=== PATIENT | female | born 1975 | race Two or more races ===

== ENCOUNTER 2017-04-03 16:30 | Emergency (ER) | payer SELFPAY ==
[2017-04-03] MEDS ORDERED: Ondansetron 4 MG/2 ML SDV IVPUSH ONE (17:29)
[2017-04-03] MEDS ORDERED: Sodium Chloride 0.9% 1,000 ML IV ONE (17:30)
[2017-04-03] MEDS ORDERED: HYDROmorphone 0.5 MG/0.5 ML Syringe IVPUSH ONE ×2 (17:30→19:00)
--- NOTE | 2017-04-03 17:35 | EDM.PDOC ---
ED HPI GENERAL MEDICAL PROBLEM - General Chief Complaint: Abdominal Pain Stated Complaint: SIDE PAIN Time Seen by Provider: 04/03/17 17:20 Source of Information: Reports: Patient History Limitations: Reports: No Limitations - History of Present Illness INITIAL COMMENTS - FREE TEXT/NARRATIVE: Patient is a 41-year-old female who presents to the ED complaining of right lower quadrant abdominal pain that started last night at approximately 6:00. She 's had no appetite. Has had intermittent nausea but with no emesis. Pain has been constant with waxing waning in intensity. Described as a sharp discomfort that is not radiating anywhere. There's been no fever chills. No diarrhea. No pain with urination. No prior history of similar symptoms. She denies being she had a tubal ligation. Denies any abnormal vaginal discharge. Pain is currently a 10 out of 10. history 3, para 2, miscarriage 1 , 0. Patient's past medical history includes a heart murmur, hypothyroidism Currently taking levothyroxine. Surgical history tubal ligation and cholecystectomy. Patient does not smoke, consume alcohol, or recreational drugs. She has no primary care provider. Right Lower Abdominal Pain Score (Numeric/FACES): 10 - Related Data Allergies Allergy/AdvReac Type Severity Reaction Status Date / Time No Known Allergies Allergy Verified 04/03/17 16:41 Home Meds: Home Meds [place] Thyroid. 180 mg PO DAILY 04/03/17 [History] Levothyroxine 25 mcg PO ACBREAKFAST 04/03/17 [History] Past Medical History Cardiovascular History: Reports: Heart Murmur Endocrine/Metabolic History: Reports: Hypothyroidism - Past Surgical History GI Surgical History: Reports: Cholecystectomy ED ROS GENERAL - Review of Systems Review Of Systems: ROS reveals no pertinent complaints other than HPI. Constitutional: Reports: Decreased Appetite. Denies: Fever, Chills Respiratory: Reports: No Symptoms Cardiovascular: Reports: No Symptoms GI/Abdominal: Reports: Abdominal Pain, Decreased Appetite, Nausea. Denies: Constipation, Diarrhea, Difficulty Swallowing, Distension, Flatus, Hematemesis, Vomiting : Denies: Dysuria, Frequency, Hematuria, Urgency ED EXAM, GI/ABD - Physical Exam Exam: See Below Exam Limited By: Language Barrier ( Zack is present helping with interpreting.) General Appearance: Alert, WD/WN, Mild Distress Ears: Hearing Grossly Normal Throat/Mouth: Normal Inspection, Normal Oropharynx Neck: Normal Inspection, Supple Respiratory/Chest: No Respiratory Distress, Lungs Clear, Normal Breath Sounds, Chest Non-Tender Cardiovascular: Normal Peripheral Pulses, Regular Rate, Rhythm GI/Abdominal Exam: Normal Bowel Sounds, Soft, No Organomegaly, No Distention, Rebound (Right lower quadrant), Tender (Right lower quadrant. Positive McBurney point.) (Female) Exam: Normal External Exam, Normal Bimanual Exam, Vaginal Discharge (Skin thick creamy white discharge. Per patient this is normal for her.). No: Adnexal Mass, Adnexal Tenderness, Cervical Dilatation, Cervical Discharge, Cervical Lesions, Cervix Motion Tenderness, Uterine Tenderness, Vaginal Bleeding , Vaginal Tears Back Exam: Normal Inspection. No: CVA Tenderness (L), CVA Tenderness (R) Neurological: Alert, Oriented, CN II-XII Intact, Normal Cognition, No Motor/ Sensory Deficits Psychiatric: Normal Affect, Normal Mood Skin Exam: Warm, Dry, Intact, Normal Color Course - Vital Signs Last Recorded V/S: Last Vital Signs Temp 99.3 F 04/03/17 16:43 Pulse 74 04/03/17 16:43 Resp 17 04/03/17 16:43 BP 161/83 H 04/03/17 16:43 Pulse Ox 98 04/03/17 16:43 - Orders/Labs/Meds Orders: Active Orders 24 hr Category Date Time Status Peripheral IV Care [RC] . DIRECTED Care 04/03/17 17:29 Active Peripheral IV Insertion Adult [OM.PC] Stat Oth 04/03/17 17:28 Ordered Labs: Laboratory Tests 04/03/17 04/03/17 04/03/17 Range/Units 17:35 17:35 18:25 WBC 8.08 (3.98-10.04) K/mm3 RBC 4.58 (3.98-5.22) M/mm3 Hgb 10.2 L (11.2-15.7) gm/L Hct 33.8 L (34.1-44.9) % MCV 73.8 L (79.4-94.8) fl MCH 22.3 L (25.6-32.2) pg MCHC 30.2 L (32.2-35.5) g/dl RDW Std Deviation 42.8 (36.4-46.3) fL Plt Count 390 H (182-369) K/mm3 MPV 10.0 (9.4-12.3) fl Neut % (Auto) 60.4 (34.0-71.1) % Lymph % (Auto) 29.5 (19.3-51.7) % [place] % (Auto) 7.4 (4.7-12.5) % Eos % (Auto) 2.5 (0.7-5.8) Baso % (Auto) 0.1 (0.1-1.2) % Neut # (Auto) 4.88 (1.56-6.13) K/mm3 Lymph # (Auto) 2.38 (1.18-3.74) K/mm3 [place] # (Auto) 0.60 H (0.24-0.36) K/mm3 Eos # (Auto) 0.20 (0.04-0.36) K/mm3 Baso # (Auto) 0.01 (0.01-0.08) K/mm3 Manual Slide Review Abnormal smear Sodium (136-145) mEq/L Potassium (3.5-5.1) mEq/L Chloride (98-107) mEq/L Carbon Dioxide (21-32) mEq/L Anion Gap (5-15) BUN (7-18) mg/dL Creatinine (0.55-1.02) mg/dL Est Cr Clr Drug Dosing mL/min Estimated GFR (MDRD) (>60) mL/min BUN/Creatinine Ratio (14-18) Glucose (74-106) mg/dL Calcium (8.5-10.1) mg/dL Total Bilirubin (0.2-1.0) mg/dL AST (15-37) U/L ALT (14-59) U/L Alkaline Phosphatase (46-116) U/L C-Reactive Protein (<1.0) mg/dL Total Protein (6.4-8.2) g/dl Albumin (3.4-5.0) g/dl Globulin gm/dL Albumin/Globulin Ratio (1-2) Lipase (73-393) U/L Urine Color Yellow (Yellow) Urine Appearance Clear (Clear) Urine pH 7.5 (5.0-8.0) Ur Specific [place] 1.015 (1.005-1.030) Urine Protein Negative (Negative) Urine Glucose (UA) Negative (Negative) Urine Ketones Negative (Negative) Urine Occult Blood Negative (Negative) Urine Nitrite Negative (Negative) Urine Bilirubin Negative (Negative) Urine Urobilinogen 0.2 (0.2-1.0) Ur Leukocyte Esterase Negative (Negative) Urine RBC 0-5 (0-5) /hpf Urine WBC 0-5 (0-5) /hpf Ur Epithelial Cells 5-10 H (0-5) /hpf Urine Bacteria Few (FEW) /hpf Urine Mucus Not seen (FEW) /hpf Urine HCG, Qual Negative (NEGATIVE) 04/03/17 Range/Units 18:25 WBC (3.98-10.04) K/mm3 RBC (3.98-5.22) M/mm3 Hgb (11.2-15.7) gm/L Hct (34.1-44.9) % MCV (79.4-94.8) fl MCH (25.6-32.2) pg MCHC (32.2-35.5) g/dl RDW Std Deviation (36.4-46.3) fL Plt Count (182-369) K/mm3 MPV (9.4-12.3) fl Neut % (Auto) (34.0-71.1) % Lymph % (Auto) (19.3-51.7) % [place] % (Auto) (4.7-12.5) % Eos % (Auto) (0.7-5.8) Baso % (Auto) (0.1-1.2) % Neut # (Auto) (1.56-6.13) K/mm3 Lymph # (Auto) (1.18-3.74) K/mm3 [place] # (Auto) (0.24-0.36) K/mm3 Eos # (Auto) (0.04-0.36) K/mm3 Baso # (Auto) (0.01-0.08) K/mm3 Manual Slide Review Sodium 140 (136-145) mEq/L Potassium 3.7 (3.5-5.1) mEq/L Chloride 103 (98-107) mEq/L Carbon Dioxide 27 (21-32) mEq/L Anion Gap 13.7 (5-15) BUN 8 (7-18) mg/dL Creatinine 0.6 (0.55-1.02) mg/dL Est Cr Clr Drug Dosing 100.01 mL/min Estimated GFR (MDRD) > 60 (>60) mL/min BUN/Creatinine Ratio 13.3 L (14-18) Glucose 99 (74-106) mg/dL Calcium 9.0 (8.5-10.1) mg/dL Total Bilirubin 0.2 (0.2-1.0) mg/dL AST 18 (15-37) U/L ALT 22 (14-59) U/L Alkaline Phosphatase 130 H (46-116) U/L C-Reactive Protein 3.4 H* (<1.0) mg/dL Total Protein 7.9 (6.4-8.2) g/dl Albumin 3.6 (3.4-5.0) g/dl Globulin 4.3 gm/dL Albumin/Globulin Ratio 0.8 L (1-2) Lipase 74 (73-393) U/L Urine Color (Yellow) Urine Appearance (Clear) Urine pH (5.0-8.0) Ur Specific [place] (1.005-1.030) Urine Protein (Negative) Urine Glucose (UA) (Negative) Urine Ketones (Negative) Urine Occult Blood (Negative) Urine Nitrite (Negative) Urine Bilirubin (Negative) Urine Urobilinogen (0.2-1.0) Ur Leukocyte Esterase (Negative) Urine RBC (0-5) /hpf Urine WBC (0-5) /hpf Ur Epithelial Cells (0-5) /hpf Urine Bacteria (FEW) /hpf Urine Mucus (FEW) /hpf Urine HCG, Qual (NEGATIVE) Meds: Medications Discontinued Medications Generic Name Dose Route Start Last Admin Trade Name Nathanq PRN Reason Stop Dose Admin Diatrizoate Meglum/Diatrizoate Sod 90 ml 04/03/17 19:02 04/03/17 19:15 Gastrografin 37% PO 04/03/17 19:03 90 ml ONETIME ONE Administration Hydromorphone HCl 0.5 mg 04/03/17 17:30 04/03/17 17:55 Dilaudid IVPUSH 04/03/17 17:31 0.5 mg ONETIME ONE Administration Hydromorphone HCl 0.5 mg 04/03/17 19:00 Dilaudid IVPUSH 04/03/17 19:01 ONETIME ONE Sodium Chloride 1,000 mls @ 250 mls/hr 04/03/17 17:30 04/03/17 17:51 Normal Saline IV 04/03/17 21:29 250 mls/hr ONETIME ONE Administration Iopamidol 125 ml 04/03/17 19:02 04/03/17 19:15 Isovue-300 (61%) IVPUSH 04/03/17 19:03 125 ml ONETIME ONE Administration Ondansetron HCl 4 mg 04/03/17 17:29 04/03/17 17:53 Zofran IVPUSH 04/03/17 17:30 4 mg ONETIME ONE Administration Sodium Chloride 10 ml 04/03/17 17:29 04/03/17 19:15 Saline Flush FLUSH 10 ml ASDIRECTED PRN Administration Keep Vein Open - Re-Assessments/Exams Free Text/Narrative Re-Assessment/Exam: IV established with Dilaudid 0.5 mg IVP, and Zofran 4 mg IVP, and IV fluids. Initial labs and studies include CBC, chem 14, hCG, lipase, UA, CRP, CT of the abdomen and pelvis with IV and oral contrast to rule out appendicitis. Labs reviewed: White blood cell count 8.08, hemoglobin 10.2, MCV 73.8, platelet count 390, sodium 140, potassium 3.7, AG 13.7, creatinine 0.6, CRP 3.4, alk phosphatase 1:30, lipase 74, and UA negative for any concerning findings. CT the abdomen and pelvis impression: Incidental findings as noted above. Nothing acute is appreciated on CT study of the abdomen and pelvis. Reassessment, patient still expressing severe right adnexal/right lower quadrant abdominal pain. Unclear etiology of pain at this point. Will order non- OB transvaginal ultrasound to evaluate for ovarian torsion. She does have a history of tubal ligation. 04/03/17 22:31 ultrasound pelvis/transvaginal impression: Limited study with questional indication of the right ovary. Left ovary is not identified.. Pelvic free fluid present. Patient remains have pain to the right adnexal/lower abdomen. Unclear etiology at this time. Suggested obtaining a vaginal exam to further delineate cause of pain. Patient has deferred this and will follow up with [facility] [employer] [facility] specialist this week. I've instructed the patient if discomfort worsens she should return back to the ED. Patient had no additional questions concerns. Discharge instructions as documented. 10/10/17 22:35 has come to to the nurse's station and advised that patient is willing to have the vaginal exam at this time to further delineate cause of pain. Exam conducted with no concerning findings. Will discharge instructions as documented. Departure - Departure Time of Disposition: 22:33 Disposition: Home, Self-Care 01 Condition: Fair Clinical Impression: Right lower quadrant abdominal pain of unknown etiology, Adnexal pain - Discharge Information Instructions: Nausea and Vomiting, Adult, [id number], Abdominal Pain, Adult, [id number], Pain Medicine Instructions, [id number] Referrals: PCP,None [Primary Care Provider] - Forms: ED Department Discharge, ED Return to Work/School Form Additional Instructions: Again unclear etiology of current complaints to the right lower quadrant/ adnexal region. CT and ultrasound were inconclusive in providing etiology. Thus at this point treatment is pain management. Take ibuprofen 600 mg and Tylenol 650 mg every 6 hours in alternating fashion for pain. Push the fluids. Start taking MiraLAX one capful every day with copious amounts of water. For severe pain not managed with the above therapies take [place] one tab every 6 hours as needed. Do not drive this evening since receiving a sedative medication. no driving while taking the [place]. Take Zofran as needed one tab every 6 hours for nausea. Call and make an appointment with a PCP at [facility] in [place] to be evaluated in the next 1-2 days. Return to the ED for any new or worsening symptoms over the next 12-24 hours. - My Orders Last 24 Hours: My Active Orders 04/03/17 17:28 Peripheral IV Insertion Adult [OM.PC] Stat 04/03/17 17:29 Peripheral IV Care [RC] . DIRECTED - Assessment/Plan Last 24 Hours: My Active Orders 04/03/17 17:28 Peripheral IV Insertion Adult [OM.PC] Stat 04/03/17 17:29 Peripheral IV Care [RC] . DIRECTED
[2017-04-03] MEDS: Sodium Chloride 0.9% 10 ML Syringe FLUSH PRN ×2 (17:50→19:15)
[2017-04-03] MEDS ORDERED: Diatrizoate Meglumine/Diatrizoate Sodium 37% 120 ML Bottle PO ONE (19:02)
[2017-04-03] MEDS ORDERED: Iopamidol 612 MG/ML 150 ML Bottle IVPUSH ONE (19:02)
--- NOTE | 2017-04-03 19:48 | CT ---
CT abdomen and pelvis Technique: Multiple axial sections were obtained from above the dome of the diaphragm inferiorly through the pubic symphysis. Intravenous and oral contrast was utilized. Delayed images were also obtained through the bladder. Comparison: No previous abdominal imaging is available. Findings: Visualized lung bases shows nothing acute. Liver and spleen appears within normal limits. Adrenal glands show no nodule. Pancreas appears within normal limits. Previous cholecystectomy is seen. Kidneys show symmetric contrast enhancement without hydronephrosis or mass. Abdominal aorta shows no aneurysmal dilatation. No retroperitoneal adenopathy or mesenteric abnormalities are seen. Essure devices are identified extending off the uterus into the presumed fallopian tubes. No pelvic mass or adenopathy is seen. Appendix is seen and appears normal in size. No free fluid or inflammatory change is noted. Delayed images shows contrast within the distal ureters and within the bladder. Bone window settings were reviewed which appear within normal limits for the patient's age. Impression: 1. Incidental findings as noted above. Nothing acute is appreciated on CT study of the abdomen and pelvis. Diagnostic code #2
--- NOTE | 2017-04-04 08:21 | US ---
Pelvic ultrasound: Multiple real-time images were obtained transvaginally and transabdominally. Uterus is anteverted. Small portion of the uterine fundus not optimally seen. Other portions of the uterus shows no discrete myometrial abnormality. Incidental nabothian cysts are present. Endometrial thickness is 1.1 cm. Left ovary not visualized. Right ovary felt to be visualized and appears without cyst. No free fluid is seen. Measurements: Uterus: Length 9.8 cm, AP height 4.4 cm, transverse width 4.7 cm Right ovary: 5.7 x 3.0 x 3.2 cm Impression: 1. Left ovary not visualized. Fundal portions of the uterus also not well seen. 2. Within these limitations, nothing acute is definitely appreciated on pelvic ultrasound. 3. Incidental nabothian cysts. Diagnostic code #2 I agree with preliminary report issued by [facility] ([facility] preliminary report dictated on 04/03/17, 10:56 PM Central Time)
== END 2017-04-03 23:00 | disposition home or self-care (01) ==
LOC: JD.ED 16:30
DX: R10.31 Right lower quadrant pain (principal); R10.2 Pelvic and perineal pain; E03.9 Hypothyroidism, unspecified; Z90.49 Acquired absence of other specified parts of digestive tract; Z79.899 Other long term (current) drug therapy; Z98.51 Tubal ligation status
CPT/HCPCS: 36415; 74177; 76830; 80053; 81001; 81025; 83690; 85025; 86140; 96361; 96374; 96375; 99284; J1170; J2405; J7040; J7050; Q9963; Q9967